=== PATIENT | male | born 1960 | race Caucasian/White ===

== ENCOUNTER 2019-10-01 06:24 | Emergency (ER) | payer OTHER, SELFPAY ==
[2019-10-01] VITALS (7 sets, daily range): BP systolic 149–180; BP diastolic 74–93; PULSE 80–84; RESP 16–18; TEMP 36.6; O2SAT 99–100; BMI 18.1
--- NOTE | 2019-10-01 06:28 | ED_ITS ---
Entered by Arminda Monteiro, acting as scribe for HPI - Abdominal Pain General: Chief Complaint: Abdominal Pain Stated Complaint: abd pain Time Seen by Provider: 10/01/19 06:28 Source: patient Mode of arrival: wheelchair Limitations: no limitations History of Present Illness: HPI narrative: 58 yo m came to the [facility] with family for abd pain. Onset was this morning. PT states that he has been having abd pain for 15 years. Pt states that he is also constipated. Pt states that he is in the worst pain in his life at this time. MD elicited complaint: abdominal pain Pertinent past history: none Onset (ago): day(s) (today) Pain Consistency: constant Location: RLQ and LLQ Severity: moderate Pain scale (0-10): 10 Quality: other (pain) Radiation: none Migration to: no migration Exacerbating factors: nothing Relieving factors: nothing Associated Symptoms: Reports no associated symptoms, nausea and vomiting; Denies chills, coffee ground emesis, constipation, GI cramping, diarrhea, dysuria, fever(s), hematochezia, hematuria, hematemesis, melena and syncope Review of Systems General: Reports: other (negative unless marked) Const: Denies: fever, chills, body aches, fatigue, malaise or diaphoresis Eyes: Denies: change in vision or blurry vision ENMT: Denies: throat pain, painful swallowing, hoarseness, ear pain, ear discharge, Change in hearing or nasal discharge Card: Denies: chest pain, palpitations, irregular heart rhythm, syncope, pre- syncope, shortness of breath on exertion or shortness of breath when lying down Resp: Denies: shortness of breath, productive cough, non-productive cough, wheezing, coughing up blood or chest congestion GI: Reports: abdominal pain, nausea and vomiting; Denies: vomiting blood, coffee grounds in vomit, diarrhea, constipation, cramping, blood in stool or black tarry stool : Denies: flank pain, difficulty urinating, painful urination, urinary frequency, urinary urgency, decreased urine ouput, urinary incontinence or blood in urine Musc: Denies: neck pain, back pain, extremity pain, extremity swelling, joint pain, joint swelling, joint warmth or joint stiffness Skin/Breast: Denies: rash, skin tenderness or yellow skin Neuro: Denies: headache, numbness in extremities, weakness in extremities, changes in sensation, lack of coordination, difficulty walking, dizziness, vertigo or confusion Endo: Denies: excessive thirst, tired all the time, cold intolerance, excessi ve sweating, flushing or hot flashes Elias/Lymph: Denies: easy bruising, easy bleeding, petechiae or enlarged lymph nodes All/Imm: Denies: hives, throat swelling, tongue swelling, facial swelling or acute wheezing PFSH ED PFSH: Statuses (acute, chronic, etc) shown below reflect problem list status as previously entered and may not be historically accurate Social History Smoking and tobacco status: current every day smoker Physical Exam Const: COMMON NORMALS: no apparent distress, oriented x3, no limitations, healthy appearing and well nourished EXAM LIMITATIONS: no altered mental status GENERAL APPEARANCE: cooperative, well kempt and well developed ORIENTATION/CONSCIOUSNESS: Yes awake HENMT: COMMON NORMALS: normocephalic, head/scalp atraumatic, hearing grossly normal bilaterally, external ears normal, EAC's normal, external nose normal and moist oral mucous membranes HEAD & SCALP: normal to inspection, normocephalic and atraumatic FACE & SINUS: normal facial exam and face symmetric NOSE: external nose normal and nares normal EXTERNAL EAR: Yes external ears normal EXTERNAL AUDITORY CANAL: EAC's normal MOUTH: oral and palatal mucosa normal and tongue normal Eye: COMMON NORMALS: PERRL, EOMs intact bilaterally, conjunctivae normal and no scleral icterus GENERAL EYE: normal appearance of both eyes and normal light reflex CONJUNCTIVA: Yes conjunctivae normal SCLERA: sclerae normal CORNEA: Yes corneas normal PUPIL: Yes PERRL DIRECT OPHTHALMOSCOPY: Yes normal light reflex Neck/C-Spine: COMMON NORMALS: full ROM, no lymphadenopathy, supple, no meningeal signs and no JVD GENERAL: Yes normal visual inspection and Yes trachea midline CERVICAL SPINE: Yes cervical ROM normal Chest: COMMONS NORMALS: inspection of chest normal and palpation of chest normal Resp: COMMON NORMALS: normal respiratory effort, no retractions, no use of accessory muscles and clear to auscultation bilaterally EFFORT & INSPECTION: Yes able to speak in complete sentences AUSCULTATION: clear to auscultation bilaterally Cardio: COMMON NORMALS: no JVD, regular rate, regular rhythm, S1 normal heart sound, S2 normal heart sound, no gallops, no clicks, no murmurs and no rub JUGULAR VENOUS DISTENTION: no JVD RATE: regular rate RHYTHM: regular rhythm HEART SOUNDS: S1 normal and S2 normal GI: COMMON NORMALS: no hepatosplenomegaly and no masses INSPECTION: Yes normal to inspection PALPATION: Yes tender Details: LLQ and RLQ, No guarding, No rigid, Yes no hepatosplenomegaly and No pulsatile mass : COMMON NORMALS: Yes no CVA tenderness BLADDER/KIDNEY EXAM: Yes no CVA tenderness Back/Pelvis: COMMON NORMALS: no CVA tenderness, thoracic and lumbar spine normal to inspection, no thoracic nor lumbar tenderness and thoraco-lumbar ROM normal Extremity: COMMON NORMALS: normal to inspection, full ROM, normal capillary refill, no joint enlargement, no clubbing, cyanosis or edema and no calf tenderness Neuro: COMMON NORMALS: oriented x3, CN's II-XII intact bilaterally, moves all extremities, no focal motor deficits and no sensory deficits noted MENINGEAL SIGNS: Yes no meningeal signs Psych: COMMON NORMALS: mental status grossly normal, thought process normal, cooperative, affect normal, speech normal and activity/motor behavior normal APPEARANCE: Yes well kempt SPEECH: Yes normal speech THOUGHT PROCESS: normal thought process Skin: COMMON NORMALS: no rashes or lesions noted, skin turgor normal, no jaundice, no petechiae and no mottling GENERAL SKIN EXAM: no rashes or lesions noted and turgor normal Course Vital Signs: Vital signs: Vital Signs Temperature 97.9 F 10/01/19 06:32 Pulse Rate 80 10/01/19 06:54 Respiratory Rate 16 10/01/19 08:00 Blood Pressure 180/79 10/01/19 08:00 Pulse Oximetry 100 10/01/19 08:00 MDM - Abdominal Pain MDM Narrative: Medical decision making narrative: The patient's symptoms have now resolved. His CT scan shows mild thickening of the proximal small bowel. He has no history of Crohn's disease or inflammatory bowel disease. I will go ahead and discharge him home with Cipro and Flagyl along with Zofran for nausea and Bentyl for cramping. He has no signs of peritonitis on exam and is feeling better at this time. He agrees to return should his symptoms change or worsen. Lab Data: Labs: Lab Results 10/01/19 10/01/19 10/01/19 Range/Units 06:43 06:43 06:43 WBC 16.6 H (4.0-10.0) 10^3/ uL RBC 4.48 (4.1-5.3) 10^6/u L Hgb 13.1 (11.7-16.6) g/dL Hct 39.2 L (42.0-52.0) % MCV 87.5 (80-94) fL MCH 29.2 (28.0-34.0) pg MCHC 33.4 (30.0-36.0) g/dL RDW 13.0 (12.1-15.1) % Plt Count 430 H (130-400) 10^3/c mm MPV 8.9 (7.4-10.4) fL Neut % (Auto) 82.1 % Lymph % (Auto) 9.9 % [place] % (Auto) 6.1 % Eos % (Auto) 1.1 % Baso % (Auto) 0.4 % Neut # (Auto) 13.6 H (1.8-7.7) 10^3/u L Lymph # (Auto) 1.7 (0.8-4.8) 10^3/u L [place] # (Auto) 1.0 H (0.2-0.9) 10^3/u L Eos # (Auto) 0.2 (0.0-0.8) 10^3/u L Baso # (Auto) 0.1 (0.0-0.1) 10^3/u L Nucleated RBC % (a uto) 0 % Nucleated RBCs # 0.0 /100WBC Sodium 132 L (136-145) mmol/L Potassium 4.3 (3.5-5.1) mmol/L Chloride 98 (98-107) mmol/L Carbon Dioxide 23 (22-29) mmol/L Anion Gap 15.3 (5-19) BUN 13 (6-20) mg/dL Creatinine 1.1 (0.7-1.2) mg/dL GFR Calculation 69.0 L (90-130) mL/min Glucose 111 H (74-109) mg/dL Lactate 1.0 (0.5-2.2) mmol/L Calcium 9.6 (8.6-10.0) mg/Dl Total Bilirubin 0.2 (0.15-1.2) mg/dL AST 16 (0-40) U/L ALT 11 (0-41) U/L Alkaline Phosphata se 81 (40-130) IU/L Total Protein 7.1 (6.6-8.7) g/dL Albumin 4.4 (3.5-5.2) g/dL Globulin 2.7 (1.3-4.6) g/dL Lipase 34 (13-60) U/L Urine Color (Yellow) Urine Appearance (CLEAR) Urine pH (5-7) Ur Specific Gravit y (1.005-1.030) Urine Protein (Negative) Urine Glucose (UA) (Normal) Urine Ketones (Negative) Urine Occult Blood (Negative) Urine Nitrate (Negative) Urine Bilirubin (NEGATIVE) Urine Urobilinogen (Negative) mg/dL Ur Leukocyte [place] ase (Negative) Urine RBC (0-2) /hpf Urine WBC (0-5) /hpf Ur Squamous Epith Cells (0-5) Urine Bacteria (NONE) Urine Mucus Ethyl Alcohol < 10 (0-10) mg/dL 10/01/19 Range/Units 07:52 WBC (4.0-10.0) 10^3/ uL RBC (4.1-5.3) 10^6/u L Hgb (11.7-16.6) g/dL Hct (42.0-52.0) % MCV (80-94) fL MCH (28.0-34.0) pg MCHC (30.0-36.0) g/dL RDW (12.1-15.1) % Plt Count (130-400) 10^3/c mm MPV (7.4-10.4) fL Neut % (Auto) % Lymph % (Auto) % [place] % (Auto) % Eos % (Auto) % Baso % (Auto) % Neut # (Auto) (1.8-7.7) 10^3/u L Lymph # (Auto) (0.8-4.8) 10^3/u L [place] # (Auto) (0.2-0.9) 10^3/u L Eos # (Auto) (0.0-0.8) 10^3/u L Baso # (Auto) (0.0-0.1) 10^3/u L Nucleated RBC % (a uto) % Nucleated RBCs # /100WBC Sodium (136-145) mmol/L Potassium (3.5-5.1) mmol/L Chloride (98-107) mmol/L Carbon Dioxide (22-29) mmol/L Anion Gap (5-19) BUN (6-20) mg/dL Creatinine (0.7-1.2) mg/dL GFR Calculation (90-130) mL/min Glucose (74-109) mg/dL Lactate (0.5-2.2) mmol/L Calcium (8.6-10.0) mg/Dl Total Bilirubin (0.15-1.2) mg/dL AST (0-40) U/L ALT (0-41) U/L Alkaline Phosphata se (40-130) IU/L Total Protein (6.6-8.7) g/dL Albumin (3.5-5.2) g/dL Globulin (1.3-4.6) g/dL Lipase (13-60) U/L Urine Color Straw (Yellow) Urine Appearance Clear (CLEAR) Urine pH 5 (5-7) Ur Specific Gravit y 1.005 (1.005-1.030) Urine Protein Neg (Negative) Urine Glucose (UA) Norm (Normal) Urine Ketones Negative (Negative) Urine Occult Blood Neg (Negative) Urine Nitrate Negative (Negative) Urine Bilirubin Neg (NEGATIVE) Urine Urobilinogen Norm (Negative) mg/dL Ur Leukocyte [place] a[place] Negative (Negative) Urine RBC 0-4 H (0-2) /hpf Urine WBC 5-10 H (0-5) /hpf Ur Squamous Epith Cells 0-4 H (0-5) Urine Bacteria 1+ H (NONE) Urine Mucus Trace Ethyl Alcohol (0-10) mg/dL Discharge Plan Discharge Prescriptions: No Action aspirin 81 mg Tablet,Delayed Release (Dr/Ec) 81 mg PO DAILY RF: 0 Lipitor 20 mg Tablet 20 mg PO DAILY RF: 0 valsartan 80 mg Tablet 80 mg PO DAILY RF: 0 cranberry 400 mg Capsule 800 mg PO DAILY RF: 0 Charcoal Caps 2 cap PO QID RF: 0 Coding Level of Care Code ED Art Historian for Chg Fwd Exam Problem Focused The documentation recorded by the scribe, Monteiro,Arminda Lucia, accurately reflects the service I personally performed and the decisions made by me, Ana Cristina Amato
--- NOTE | 2019-10-01 06:32 | CT_ITS ---
WS: [id number] CT ABDOMEN AND PELVIS WITH CONTRAST HISTORY: Lower Abdominal Pain TECHNIQUE: Imaging performed of the abdomen and pelvis with IV contrast. Single phase imaging of the abdomen. Coronal and sagittal reformats are submitted. All CT scans at [facility] use at least one of these dose optimization techniques: automated exposure control; mA and/or kV adjustment per patient size (includes targeted exams where dose is matched to clinical indication); or iterativ e reconstruction. IV CONTRAST: Omnipaque 300; 95 mL IV. Oral contrast: Yes. DLP: 518.28 mGy.cm COMPARISON: None available. Lower thorax: Linear areas of atelectasis at the LEFT lung base. Heart is normal size. No significant hiatal hernia. Liver/biliary system: Normal size liver. Hypodense area with enhancing nodularity in the periphery me asuring 10 mm in the central liver. There are a few additional scattered hypodensities. Suspect these are probably a combination of hemangiomas and cysts but really too small to characterize. No bile du ct dilatation. Gallbladder: Normal. Pancreas: Normal. Spleen: Normal. Adrenal glands: Normal. Right kidney: Normal. Left kidney: There are a few areas of cortical thinning. Vague area of decreased density in the centr al kidney measures 11 mm. Aorta: No aneurysmal dilatation but there is extensive calcified plaque and noncalcified thrombus wit hin the aorta and iliac arteries. Lymphadenopathy: None. Free fluid: None. GI tract: Mucosal thickening and mild dilatation of the proximal small bowel. Moderate fecal retentio n. The appendix is normal. Few scattered diverticula in the sigmoid region. Abdominal wall: No defects, mass or hernia. Pelvis: Slightly enlarged prostate gland. Visualized urinary bladder is negative. Bones: No osteoblastic or osteolytic bone disease. CT/CT abdomen pelvis w con* [id number] IMPRESSION: 1. Mucosal thickening and mild dilatation of the proximal small bowel. No obst ructive pattern. Consider inflammatory bowel disease. 2. Moderate atherosclerosis abdominal aorta. 3. Scattered hypodense nodules in the liver. Probably combination of cysts and hemangiomas but cannot further characterize due to small size. 4. Mild heterogeneity in the LEFT kidney parenchyma. May be small cysts, early neoplasm or infection. No adjacent inflammation to suggest an acute inflammato ry process. Consider follow-up renal ultrasound.
[2019-10-01] MEDS: ondansetron 2 mg/ML SDV 2 mL 4 MG IVP (06:45)
[2019-10-01] MEDS: HYDROmorphone 1 mg/mL INJ 1 mL 0.5 MG IV (06:45)
[2019-10-01] MEDS: sodium chloride 0.9% 1,000 ML 999 ML IV (06:46)
[2019-10-01 06:51] LABS: Basophils # 0.1 10^3/uL (0.0-0.1); Basophils % 0.4 %; Eosinophils # 0.2 10^3/uL (0.0-0.8); Eosinophils % 1.1 %; Hematocrit 39.2 % (42.0-52.0); Hemoglobin 13.1 g/dL (11.7-16.6); Lymphocytes # 1.7 10^3/uL (0.8-4.8); Lymphocytes % 9.9 %; Mean Corpuscular HGB Conc 33.4 g/dL (30.0-36.0); Mean Corpuscular Hemoglobin 29.2 pg (28.0-34.0); Mean Corpuscular Volume 87.5 fL (80-94); Mean Platelet Volume 8.9 fL (7.4-10.4); Monocytes % 6.1 %; Neutrophils # 13.6 10^3/uL (1.8-7.7); Neutrophils % 82.1 %; Nucleated Red Blood Cells % 0 %; Platelet Count 430 10^3/cmm (130-400); Red Blood Count 4.48 10^6/uL (4.1-5.3); White Blood Count 16.6 10^3/uL (4.0-10.0)
--- NOTE | 2019-10-01 07:08 | PC.NURSE ---
Report received from Tor Bolton RN at 0700 10/01/2019
[2019-10-01 07:09] LABS: Alanine Aminotransferase 11 U/L (0-41); Albumin Level 4.4 g/dL (3.5-5.2); Alkaline Phosphatase 81 IU/L (40-130); Anion Gap 15.3 (5-19); Aspartate Amino Transferase 16 U/L (0-40); Blood Urea Nitrogen 13 mg/dL (6-20); Calcium 9.6 mg/Dl (8.6-10.0); Carbon Dioxide 23 mmol/L (22-29); Chloride 98 mmol/L (98-107); Globulin 2.7 g/dL (1.3-4.6); Glucose 111 mg/dL (74-109); Lipase 34 U/L (13-60); Potassium 4.3 mmol/L (3.5-5.1); Sodium 132 mmol/L (136-145); Total Bilirubin 0.2 mg/dL (0.15-1.2); Total Protein 7.1 g/dL (6.6-8.7)
[2019-10-01 07:12] LABS: Alcohol Level < 10 mg/dL (0-10)
--- NOTE | 2019-10-01 07:56 | PC.NURSE ---
Patient to radiology for CT at this time via stretcher, taken by transporter.
--- NOTE | 2019-10-01 08:00 | PC.NURSE ---
Patient returned from CT at this time by transporter via stretcher.
[2019-10-01 08:27] LABS: Bilirubin Urine Neg (NEGATIVE); Blood Urine Neg (Negative); Glucose Urine UA Norm (Normal); Ketones Urine Negative (Negative); Leukocyte Esterase Urine Negative (Negative); Nitrate Urine Negative (Negative); Protein Urine Neg (Negative); Specific Gravity, Urine 1.005 (1.005-1.030); Urine Appearance Clear (CLEAR); Urine Color Straw (Yellow); Urobilinogen Urine Norm (Negative); pH Urine 5 (5-7)
[2019-10-01 08:31] LABS: Mucus Urine TRACE
[2019-10-01 08:32] LABS: Bacteria Urine 1+; RBC Urine 0-4 /hpf (0-2); Squamous Epithelial Cell Urine 0-4 (0-5)
[2019-10-01 08:33] LABS: Add Urine Culture? No
--- NOTE | 2019-10-01 09:18 | NUR.SHIFT ---
Saminatent is resting quietly at this time. Both eyes closed respirations regular and even. Blood pressure stable. Call light in reach of patient with side rails up at this time.
== END 2019-10-01 10:55 | disposition home or self-care (01) ==
PROVIDERS: Emergency Provider Emergency Medicine
DX: R10.9 Unspecified abdominal pain (principal); F17.210 Nicotine dependence, cigarettes, uncomplicated
CPT/HCPCS: 36415; 74177; 80053; 80307; 81001; 83605; 83690; 85025; 96360; 96374; 99282; A9270; J1170; J2405; J7030; Q9967